=== PATIENT | male | born 1990 | race Two or more races ===

== ENCOUNTER 2024-07-28 15:11 | Emergency (ER) | payer MEDICAID, OTHER ==
[~2024-07-28] VITALS: Ht 180.3 cm; Wt 84.5 kg
[2024-07-28] MEDS: LIDOCAINE 1% HCL (LOCAL ANESTH.) INJ 20ML MDV ID ONE (15:58)
[2024-07-28] MEDS: KETOROLAC TROMETH 60MG/2ML VIAL IM ONE (15:59)
--- NOTE | 2024-07-28 15:59 | ED.PDOC ---
HPI Comments 33 year old male presents to the ED with chief complaint of laceration of right hand. Patient reports that he had been messing with a power saw with his friend when he had dropped it and attempted to turn it off. Patient relays that when reaching for it, it had "jumped" at him and sliced his right hand. Patient states he has controlled the bleeding with a shirt and he is currently UTD with his Tetanus vaccine, receiving his last one a few months ago. Patient denies any numbness, weakness, or amputation. Vital signs were stable at arrival. Chief Complaint: Laceration Time Seen by MD: 15:48 Reviewed Notes: Nurses Notes, Medications, Allergies Allergies: Coded Allergies: Erythromycin (Verified Allergy, Unknown, 07/28/24) Information Source: Patient Mode of Arrival: Ambulatory Severity: Moderate Severity of Laceration: Controlled Bleeding Complexity: Intermediate Timing: Hours Prehospital treatment: None Laceration Location: Hand Mechanism: Metal Last Tetanus: UTD Laceration Length (cm): 6 Skin Type: Irregular Depth of Injury: Skin, Mucosa, SQ Tendon Injury: 0% Capillary Refill: < 3 seconds Tender: Severe Discharge: Serosanguinous Erythema: Localized to Wound Edges Past Medical History PAST MEDICAL HISTORY: Denies Surgical History: Denies all surgeries Family History Family History: Reviewed,noncontributory to illness, Unknown Social History Smoker: Non-Smoker Alcohol: Denies ETOH Use Drugs: Denies Drug Use Lives In: Home Constitutional: denies: chills, diaphoresis, fatigue, fever, malaise, sweats, weakness, others EENTM: denies: blurred vision, double vision, ear bleeding, ear discharge, ear drainage, ear pain, ear ringing, eye pain, eye redness, hearing loss, mouth pain, mouth swelling, nasal discharge, nose bleeding, nose congestion, nose pain, photophobia, tearing, throat pain, throat swelling, voice changes, others Respiratory: denies: cough, hemoptysis, orthopnea, SOB at rest, shortness of breath, SOB with excertion, stridor, wheezing, others Cardiovascular: denies: chest pain, dizzy spells, diaphoresis, Dyspnea on exertion, edema, irregular heart beat, left arm pain, lightheadedness, palpitations, PND, syncope, others Gastrointestinal: denies: abdomen distended, abdominal pain, blood streaked bowels, constipated, diarrhea, dysphagia, difficulty swallowing, hematemesis, melena, nausea, poor appetite, poor fluid intake, rectal bleeding, rectal pain, vomiting, others Genitourinary: denies: burning, dysuria, flank pain, frequency, hematuria, incontinence, penile discharge, penile sore, pain, testicle pain, testicle swelling, urgency, others Neurological: denies: dizziness, fainting, headache, left sided numbness, left sided weakness, numbness, paresthesia, pre-existing deficit, right sided numbness, right sided weakness, seizure, speech problems, tingling, tremors, weakness, others Musculoskeletal: denies: back pain, gout, joint pain, joint swelling, muscle pain, muscle stiffness, neck pain, others Integumetry: reports: laceration (Top of right hand); denies: bruises, change in color, change in hair/nails, dryness, lesions, lumps, rash, wounds, others Allergic/Immunocompromised: denies: Difficulty Healing, Frequent Infections, Hives, Itching, others Hematologic/Lymphatic: denies: anemia, blood clots, easy bleeding, easy bruising, swollen glands, others Endocrine: denies: excessive hunger, excessive sweating, excessive thirst, excessive urination, flushing, intolerance to cold, intolerance to heat, unexplained weight gain, unexplained weight loss, others Psychiatric: denies: anxiety, bipolar disorder, depression, hopeless, panic disorder, schizophrenia, sleepless, suicidal, others All Other Systems: Reviewed and Negative Physical Exam Exam Comments Patient was tearful and weight-bearing throughout evaluation. General Appearance: Moderate Distress (Due to hand pain concerns.), Normal HEENT: Normal ENT Inspection, PERRL/EOMI Neck: Full Range of Motion, Non-Tender, Normal, Normal Inspection Respiratory: Chest Non-Tender, Lungs Clear, No Accessory Muscle Use, No Respiratory Distress, Normal Breath Sounds Cardiovascular: No Edema, No JVD, No Murmur, No Gallop, Normal Peripheral Pulses, Regular Rate/Rhythm Breast Exam: Deferred Gastrointestinal: No Organomegaly, Non Tender, No Pulsatile Mass, Normal Bowel Sounds, Soft Genitalia: Deferred Pelvic: Deferred Rectal: Deferred Extremities: No calf tenderness, Normal capillary refill, Normal range of motion, No pedal edema Musculoskeletal : Apperance: Normal Neurologic: Alert, fork operator II-XII nml as Tested, No Motor Deficits, Normal Affect, Normal Mood, No Sensory Deficits Cerebellar Function: Normal Reflexes: Normal Skin: Dry, Lacerations (Patient presents with a 6 cm laceration on the dorsal aspect of his hand extending from the dorsal aspect into the 2nd and 3rd finger webbing. Mild active bleed. No tendon involvement. Patient displays full range of motion.), Normal Color, Warm Lymphatic: No Adenopathy Was a procedure done? Was a procedure done?: Yes Sedation Sedation?: No Other Procedure Notes 11 cc of 1% lidocaine was utilized for local anesthesia. Sterile field was placed. Copious irrigation performed. Nine 4-0 Ethilon sutures were placed in a simple interrupted fashion to approximate the wound. Minimal blood loss. Patient tolerated procedure well. Clean dressing applied. Differential diagnosis Generic Laceration: Laceration X-Ray, Labs, Meds, VS Vital Signs Date Time Temp Pulse Resp B/P (MAP) Pulse Ox O2 Delivery O2 Flow Rate FiO2 07/28/24 16:34 97 17 95 Room Air 07/28/24 16:34 98.2 97 17 133/71 (91) 95 98.2 07/28/24 15:51 98.2 100 20 134/74 (94) 95 98.2 07/28/24 15:47 98.5 100 20 134/74 (94) 95 Current Medications Medications (Trade) Dose Ordered Sig/Ollie Route Start Time Stop Time Status Last Admin Lidocaine HCl (Xylocaine 1%) 20 ml ONCE ONCE ID 07/28/24 16:00 07/28/24 16:01 DC 07/28/24 15:58 Ketorolac Tromethamine (Toradol Injection) 30 mg ONCE ONCE IM 07/28/24 16:00 07/28/24 16:01 DC 07/28/24 16:25 X-Ray, Labs, Meds, VS Comment Patient tolerated procedure well. Advised patient utilize antibiotics as directed until completion as well as daily dressing changes. Patient needs to return to ED or primary care provider in approximately 10 to 12 days for re- evaluation and probable suture removal. Time of 1ST Reevaluation: 17:04 Reevaluation 1ST: Improved Consultation: PCP Patient Education/Counseling: Diagnosis, Treatment Family Education/Counseling: Diagnosis, Treatment, No Family Present Departure 1 Departure Time of Disposition: 17:04 Impression: Primary Impression: Hand laceration Disposition: 01 HOME / SELF CARE / HOMELESS Condition: Stable Additional Instructions: Advise utilizing antibiotics as directed until completion. Patient should do daily dressing changes. Pain medication as needed. Patient should return to ED or primary care provider in 10-12 days for re-evaluation and probable suture removal. e-Prescriptions Bacitracin Base (Bacitracin) 500 Unit/Gm Oin 500 UNIT OP BID, #30 GM Prov: SILVIA ROJAS PAC 07/28/24 Acetaminophen W/ Codeine (Tylenol W/Cod #3) 1 Tab Tb 1 TAB PO Q6HP PRN, #15 TAB Prov: SILVIA ROJAS PAC 07/28/24 Ibuprofen (Ibuprofen) 800 Mg Tab 1 TAB PO Q8HP PRN, #30 TAB 0 Refills Prov: SILVIA ROJAS PAC 07/28/24 Cephalexin (KEFLEX CAPSULE) 250 Mg Cp 1 CAP PO QID for 7 Days, #28 CAP Prov: SILVIA ROJAS PAC 07/28/24 Discharged With: Self, Friend Critical Care Note Critical Care Time?: No Stability Stability form required: No Heart Score Heart Score: Heart Score Response (Comments) Value History N/A 0 EKG N/A 0 Age N/A 0 Risk Factors N/A 0 Troponin N/A 0 Total 0 I personally scribed for SILVIA ROJAS PAC ([email or web address]) on 07/28/24 at 15:59. Electronically submitted by Mukesh Loza ([email or web address]). SILVIA ROJAS PAC Jul 28, 2024 15:59
[2024-07-28] MEDS: Surgicel PA 2X3 INCH TOP ONE ×2 (16:33)
[2024-07-28 16:34] VITALS: BP 133/71; PULSE 97; RESP 17; TEMP 98.2; O2SAT 95
[2024-07-28] MEDS ORDERED: BACIOIN15 OP (17:06)
[2024-07-28] MEDS ORDERED: CEPH250C PO (17:06)
[2024-07-28] MEDS ORDERED: ACE3T PO (17:06)
[2024-07-28] MEDS ORDERED: IBUP-1456 PO (17:06)
== END 2024-07-28 17:18 | disposition home or self-care (01) ==
LOC: ER 15:11
DX: S61.210A Laceration without foreign body of right index finger without damage to nail, initial encounter (principal); S61.212A Laceration without foreign body of right middle finger without damage to nail, initial encounter; Z88.1 Allergy status to other antibiotic agents; W22.8XXA Striking against or struck by other objects, initial encounter; Y93.39 Activity, other involving climbing, rappelling and jumping off; Y92.89 Other specified places as the place of occurrence of the external cause; Y99.8 Other external cause status
CPT/HCPCS: 12002; 96372; 99283; J1885; J2003